=== PATIENT | male | born 2000 | race Caucasian/White ===

== ENCOUNTER 2023-06-12 23:16 | Emergency (ER) | payer BC ==
[~2023-06-12] VITALS: Ht 180.3 cm; Wt 110.2 kg
[2023-06-12 23:25] VITALS: BP_SYST 146; PULSE 77; RESP 20; TEMP 98.6; O2SAT 98
[2023-06-12] MEDS ORDERED: ONDANSETRON 4 MG ODT TAB PO ONE (23:45)
[2023-06-13 00:13] LABS: BASOPHILS # (AUTO) 0.1 K/uL (0.0-0.2); BASOPHILS % (AUTO) 0.5 % (0.0-2.0); EOSINOPHILS # (AUTO) 0.1 K/uL (0.0-0.4); HEMATOCRIT 49.1 % (36-54); HEMOGLOBIN 16.4 g/dL (14.0-18.0); LYMPHOCYTES # (AUTO) 3.3 K/uL (1.0-5.5); LYMPHOCYTES % (AUTO) 32.4 % (20.5-51.5); MEAN CORPUSCULAR HEMOGLOBIN 31 pg (27-31); MEAN CORPUSCULAR HGB CONC 33 % (32-36); MEAN CORPUSCULAR VOLUME 92 fL (79.0-98.0); MONOCYTES # (AUTO) 1.1 K/uL (0.0-1.0); MONOCYTES % (AUTO) 11.5 % (1.7-9.3); NEUTROPHILS # (AUTO) 5.5 K/uL (1.8-7.7); NEUTROPHILS % (AUTO) 54.6 % (40.0-70.0); PLATELET COUNT (AUTO) 209 K/uL (130-430); RED BLOOD CELL COUNT(AUTO) 5.34 MIL/uL (4.2-6.2)
[2023-06-13 00:42] LABS: CALCIUM 8.9 mg/dL (8.4-11.0); CREATININE 1.02 mg/dL (0.55-1.30); TOTAL BILIRUBIN 0.6 mg/dL (0.0-1.0)
[2023-06-13] MEDS ORDERED: ONDA-8 TL (01:15)
[2023-06-13 01:20] VITALS: BP_SYST 131; PULSE 75; RESP 15; TEMP 97.9; O2SAT 99
[2023-06-13 01:28] LABS: CKMB RELATIVE INDEX 1.4 (0.0-2.9); CREATINE KINASE MB 5.1 ng/mL (0-3.6)
== END 2023-06-13 01:20 | disposition home or self-care (01) ==
LOC: SED 23:16
DX: R11.0 Nausea (principal); R53.83 Other fatigue; R10.9 Unspecified abdominal pain; Z79.899 Other long term (current) drug therapy
CPT/HCPCS: 99283; 80053; 82550; 82553; 85025; 36415; Q0162